=== PATIENT | female | born 1985 | race Caucasian/White ===

== ENCOUNTER 2020-09-03 20:35 | Emergency (ER) | payer BC ==
[2020-09-03 20:46] VITALS: RESP 18; TEMP 98.9
--- NOTE | 2020-09-03 21:18 | XR ---
Left hand HISTORY: Laceration 3 views of the left hand Bone mineralization, joint spaces and alignment are maintained. No radiopaque foreign body. No fractu re or dislocation. Soft tissue defect noted at the first digit. IMPRESSION: Soft tissue injury.
[2020-09-03] MEDS ORDERED: CEPHALEXIN 500 MG CAP PO STA (21:28)
[2020-09-03] MEDS ORDERED: LIDOCAINE 1% INJ 10MG/ML (20 ML MDV) SQ STA (21:28)
[2020-09-03] MEDS ORDERED: ACET/COD 300 MG/30 MG STARTER PACK 6 TAB BTL PO STA (22:56)
--- NOTE | 2020-09-03 22:56 | ED ---
General Adult HPI - General Chief complaint: Wound/Laceration Stated complaint: L Thumb Injury Time Seen by Provider: 09/03/20 20:56 Source: patient, RN notes reviewed, old records reviewed Mode of arrival: ambulatory Limitations: no limitations - History of Present Illness Initial comments: 35-year-old female patient presents to ED for laceration to left thumb. Patient was moving a piece of concrete when she had picked up a concrete she actually hit her finger on another rock. He denies rapid on the hand as well as while she was holding the piece of concrete. Patient is laceration to the distal aspect of the thumb. Denies any other complaints. Pedis up-to-date. Systemic: Pt denies fatigue, fever/chills, rash. Pt denies weakness, night sweats, weight loss. Neuro: Pt denies headache, visual disturbances, syncope or pre-syncope. HEENT: Pt denies ocular discharge or irritation, otalgia, rhinorrhea, pharyngitis or notable lymphadenopathy. Cardiopulmonary: Pt denies chest pain, SOB, heart palpitations, dyspnea on exertion. Abdominal/GI: Pt denies abdominal pain, n/v/d. : Pt denies dysuria, burning w/ urination, frequency/urgency. Denies new onset urinary or bowel incontinence. MSK: Pt denies myalgia, loss of strength or function in extremities. Neuro: Pt denies new onset weakness, paresthesias. - Related Data Previous Rx's Medication Instructions Recorded Cephalexin [Keflex] 500 mg PO Q12HR 4 Days #8 cap 09/03/20 Allergies Allergy/AdvReac Type Severity Reaction Status Date / Time lidocaine Allergy Swelling Verified 09/03/20 20:46 Penicillins Allergy Unknown Verified 09/03/20 20:46 Childhood Review of Systems ROS Statement: Those systems with pertinent positive or pertinent negative responses have been documented in the HPI. ROS Other: All systems not noted in ROS Statement are negative. Past Medical History Past Medical History: No Reported History History of Any Multi-Drug Resistant Organisms: None Reported Past Surgical History: Cholecystectomy Past Psychological History: No Psychological Hx Reported Smoking Status: Never smoker Past Alcohol Use History: Rare Past Drug Use History: None Reported General Exam - General Exam Comments Initial Comments: Constitutional: NAD, AOX3, Pt has pleasant affect. HEENT: NC/AT, trachea midline, neck supple, no lymphadenopathy. External ears appear normal, without discharge. Mucous membranes moist. Eyes PERRLA, EOM intact. There is no scleral icterus. No pallor noted. Cardiopulmonary: RRR, no murmurs, rubs or gallops, no JVD noted. Lungs CTAB in anterior and posterior malone. No peripheral edema. Abdominal exam: Abdomen soft and non-distended. Abdomen non-tender to palpation in all 4 quadrants. Bowel sounds active in LLQ. No hepatosplenomegaly. No ecchymosis Neuro: CN II-XII grossly intact. No nuchal rigidity. MSK: Stellate laceration spanning from the lateral aspect of the distal first digit distal to the interphalangeal joint around the distal nailbed. This did create a gaping laceration at the junction between the nailbed and the distal phalanx. I was able to cut back the nail and approximate this laceration. It was vigorously irrigated. It is neurovascularly intact before and after suture placement.]Posterior tibialis and radial pulse +2 bilaterally. Sensation intact in upper and lower extremities. Full active ROM in upper and lower extremities, 5/5 stregnth. Limitations: no limitations Course Vital Signs 09/03/20 20:44 Temperature 98.9 F Pulse Rate 73 Respiratory 18 Rate Blood Pressure 146/92 O2 Sat by Pulse 100 Oximetry Procedures - Laceration Laceration #1 Consent Obtained: verbal consent Site: upper extremity (1st digit L hand ) Size (cm): 4 Description: linear, stellate Anesthesia Technique: local infiltration Amount (mls): 4 Pre-repair: wound explored, irrigated extensively, deep structures intact Type of Sutures: nylon Size of Sutures: 5-0 Number of Sutures: 8 Patient Tolerated Procedure: well, no complications Medical Decision Making - Medical Decision Making Stellate laceration spanning from the lateral aspect of the distal first digit distal to the interphalangeal joint around the distal nailbed. This did create a gaping laceration at the junction between the nailbed and the distal phalanx. I was able to cut back the nail and approximate this laceration. It was vigorously irrigated. It is neurovascularly intact before and after suture placement. Patient was stable, afebrile. Plain film negative. Physical exam doesn't display a laceration which was vigorously irrigated and repaired. Patient will be placed on prophylactic antibiotics will be discharged in a splint and have outpatient follow-up with orthopedic hand. Case discussed with Dr. Gupta. Disposition Clinical Impression: Laceration Disposition: HOME SELF-CARE Condition: Stable Instructions (If sedation given, give patient instructions): Laceration (ED) Additional Instructions: continue to wear splint. Take antibiotics as directed. Follow-up with primary care provider tomorrow. Follow-up with orthopedic consult 1-2 days. Monitor closely for infection. Return to ER if any worsening symptoms. Please return for suture removal: Hand: 7-10 days Face: 5 days Chest/abdomen: 12-14 days Extremities: 7-10 days Scalp: 7 days Eyebrow: 5-7 days Foot/sole: 12-14 days Please monitor for signs and symptoms of infection including: redness, warmth, drainage, discharge. Please return to ED if these signs or symptoms occur, new signs or symptoms develop or if condition worsens in anyway. Prescriptions: Cephalexin [Keflex] 500 mg PO Q12HR 4 Days #8 cap Is patient prescribed a controlled substance at d/c from ED?: No Referrals: None,Stated [Primary Care Provider] - 1-2 days Keith Drake DO [Doctor of Osteopathic Medicine] - 1-2 days
[2020-09-03] MEDS ORDERED: BACITRACIN OINT 1 EACH PACKET TOPICAL ONE (23:38)
[2020-09-03 23:59] VITALS: BP 133/86; PULSE 78
== END 2020-09-03 23:53 | disposition home or self-care (01) ==
LOC: EC 20:35
DX: S61.012A Laceration without foreign body of left thumb without damage to nail, initial encounter (principal); Z88.0 Allergy status to penicillin; Z91.041 Radiographic dye allergy status; W22.8XXA Striking against or struck by other objects, initial encounter
CPT/HCPCS: 73130; 99283; 12002; J2001

== ENCOUNTER → 2022-03-19 | Outpatient (CLI) | payer BC ==
--- NOTE | 2022-03-19 14:57 | MM ---
Reason for exam: clinical finding. Baseline mammogram. History: Patient is nulliparous. Family history of breast cancer in paternal aunt at age 78 and breast cancer in paternal grandmother at age 60. Taking hormonal contraceptives beginning at age 34. Indicated problem(s): palpable abnormality in the left breast. Physical Findings: A clinical breast exam by your physician is recommended on an annual basis and results should be correlated with mammographic findings. MG 3D Diag Mammo W/Cad CHRIS Bilateral CC and MLO view(s) were taken. LM view(s) were taken of the left breast. The breast tissue is heterogeneously dense. This may lower the sensitivity of mammography. There is no discrete abnormality including area of concern. Results were given to the patient verbally at the time of the exam. ASSESSMENT: Incomplete: need additional imaging evaluation, BI-RAD 0 RECOMMENDATION: Ultrasound of the left breast. Manage patient on a clinical basis.
--- NOTE | 2022-03-19 14:59 | USB ---
Reason for exam: additional evaluation requested from abnormal screening. History: Patient is nulliparous. Family history of breast cancer in paternal aunt at age 78 and breast cancer in paternal grandmother at age 60. Taking hormonal contraceptives beginning at age 34. Physical Findings: A clinical breast exam by your physician is recommended on an annual basis and results should be correlated with mammographic findings. US Breast Limited LT Left limited breast ultrasound including focal area of concern, retroareolar and axilla demonstrates no cystic or solid lesion seen. Results were given to the patient verbally at the time of the exam. ASSESSMENT: Negative, BI-RAD 1 RECOMMENDATION: Routine screening mammogram of both breasts at age 41. Manage patient on a clinical basis.
== END | disposition home or self-care (01) ==
LOC: RADMAMWWP 12:56
PROVIDERS: ATTEND Obstetrics & Gynecology Obstetrics
DX: N63.0 Unspecified lump in unspecified breast (principal)
CPT/HCPCS: 77062; 77066